=== PATIENT | female | born 1985 | race Two or more races ===

== ENCOUNTER 2017-10-12 17:43 | Observation (INO) | payer BC ==
[2017-10-12] MEDS ORDERED: ONDANSETRON HCL 4 MG/2 ML VIAL IV ONE (20:30)
[2017-10-12] MEDS ORDERED: SODIUM CHLORIDE 0.9% 1,000 ML IVB ONE (20:30)
[2017-10-12 20:44] LABS: Basophils # (auto) 0 uL; Basophils % (auto) 0.4 % (0.0-2.0); Eosinophils # (auto) 0.2 uL; Hematocrit 36.5 % (36.0-46.0); Hemoglobin 12.6 g/dL (12.2-16.2); Lymphocytes # (auto) 2.2 uL; Lymphocytes % (auto) 25.2 % (10.0-50.0); Mean Corpuscular Hemoglobin 32.9 pg (28.0-32.0); Mean Corpuscular Hgb Conc. 34.6 g/dL (32.0-36.0); Monocytes # (auto) 0.6 uL; Monocytes % (auto) 6.8 % (0.0-12.0); Neutrophils # (auto) 5.7 uL; Neutrophils % (auto) 65.6 % (37.0-80.0); Platelet Count (auto) 243 10^3/uL (140-450); Red Blood Cells 3.84 10^6/uL (4.0-5.20); Red Cell Distribution Width 13.1 % (11.8-14.3); White Blood Cell 8.7 10^3/uL (4.4-10.8)
[2017-10-12 21:01] LABS: Albumin 3.8 g/dL (3.4-5.0); Bilirubin, Total 0.3 mg/dL (0.2-1.0); Calcium 8.5 mg/dL (8.5-10.1); Potassium 3.4 mmol/L (3.5-5.1); Total Protein 7.3 g/dL (6.4-8.2)
[2017-10-12 21:03] LABS: Amylase 55 U/L (25-115); Lipase 149 U/L (73-393)
[2017-10-12 21:27] LABS: Urine Amorphous Crystal FEW /hpf (None Seen); Urine Bacteria FEW /hpf (None Seen); Urine Blood Negative /uL (Negative); Urine Mucus FEW (None Seen); Urine Specific Gravity 1.025 (1.001-1.035); Urine WBC 11 /hpf (0 - 5)
[2017-10-12 22:00] VITALS: BP 94/57
== END 2017-10-13 00:25 | disposition home or self-care (01) | DRG 781 ==
LOC: ER 17:50 → OVERFLOW 20:31 → ER 10-13 00:05
PROVIDERS: ADMIT Family Medicine; ATTEND Family Medicine
DX: O23.41 Unspecified infection of urinary tract in pregnancy, first trimester (principal); Z3A.01 Less than 8 weeks gestation of pregnancy
CPT/HCPCS: 36415; 76801; 80053; 81001; 82150; 83690; 84702; 85025; 94761; 96361; 96374; 99285; G0378; J2405; J7030

== ENCOUNTER 2023-02-01 15:02 | Emergency (ER) | payer BC ==
[~2023-02-01] VITALS: Ht 167.6 cm; Wt 71.4 kg
[2023-02-01] MEDS ORDERED: ACETAMINOPHEN 500 MG TAB PO ONE ×2 (15:45)
[2023-02-01 16:49] VITALS: BP 107/58; PULSE 105; RESP 16; O2SAT 98
[2023-02-01] MEDS ORDERED: cefTRIAXone SOD 1,000 MG VL IM ONE (17:30)
[2023-02-01 17:45] LABS: Urine Bacteria FEW /hpf (None Seen); Urine Blood Negative /uL (Negative); Urine Clarity Clear (Clear); Urine Color Yellow (Yellow); Urine Mucus FEW (None Seen); Urine Protein, UAD Negative (Negative); Urine Urobilinogen Normal (Negative); Urine WBC 15 /hpf (0 - 5)
[2023-02-01 18:04] VITALS: TEMP 99.1
[2023-02-01] MEDS ORDERED: AZIT500T66 PO (18:06)
[2023-02-01] MEDS ORDERED: IBUP-1454 PO (18:06)
== END 2023-02-01 18:10 | disposition home or self-care (01) ==
LOC: ER 15:02
DX: J03.90 Acute tonsillitis, unspecified (principal); N39.0 Urinary tract infection, site not specified
CPT/HCPCS: 71045; 81001; 81025; 96372; 99284; J0696